=== PATIENT | female | born 2000 | race Two or more races ===

== ENCOUNTER 2022-10-24 09:11 | Outpatient (CLI) | payer BC, SELFPAY ==
--- NOTE | 2022-10-24 09:15 | CRLHL7_ITS ---
For Patients: As a result of the Cures Act, medical imaging exams and procedure reports are released immediately into your electronic medical record. You may view this report before your referring provider. If you have questions, please contact your health care provider. RIGHT BREAST ULTRASOUND CLINICAL HISTORY: RIGHT breast pain. COMPARISON: None. TECHNIQUE: Real-time ultrasound imaging of RIGHT breast with imaging documentation. FINDINGS: Targeted sonogram 10 o`clock 2 cm from the nipple RIGHT breast in the area of concern performed. Dense fibroglandular tissue is noted. There is no abscess or abnormal vascularity. No fibrocystic change or solid mass. IMPRESSION: Normal dense breast tissue RIGHT breast 10 o`clock 2 cm from the nipple. RECOMMENDATIONS: Clinical follow-up. Results and recommendations were discussed with the patient at the time of the exam. BI-RADS Category 2: Benign Dictated by Valentin Calderón MD @ 10/24/2022 11:37:34 AM jj/Dictated by: Valentin Calderón MD @ 10/24/2022 11:37:00 AM (Electronically Signed)
== END 2022-10-24 09:12 | disposition home or self-care (01) ==
LOC: US 09:11
PROVIDERS: Visit Provider Registered Nurse
DX: N63.0 Unspecified lump in unspecified breast (principal); N63.10 Unspecified lump in the right breast, unspecified quadrant
CPT/HCPCS: 76642